=== PATIENT | female | born 1955 | race Caucasian/White ===

== ENCOUNTER 2017-08-20 20:02 | Inpatient (IN) | payer BC ==
[~2017-08-20] VITALS: Ht 162.6 cm; Wt 89.3 kg
[2017-08-21 00:40] LABS: BASOPHIL % 0.3 % (0-2); PLATELET COUNT 243 x10^3mcL (130-400); RED CELL DISTRIBUTION WIDTH 12.8 % (11.5-14.5)
[2017-08-21 00:56] LABS: ALBUMIN 3.9 g/dL (3.4-5.0); BILIRUBIN TOTAL 0.35 mg/dL (0.20-1.00); CARBON DIOXIDE 34.7 mmol/L (21-32); CREATININE SERUM 1.5 mg/dL (0.6-1.0); TOTAL PROTEIN, SERUM 7.3 g/dL (6.4-8.2)
[2017-08-21 01:04] LABS: POTASSIUM SERUM 2.5 mmol/L (3.5-5.1)
[2017-08-21] MEDS ORDERED: HYDROCHLOROTH12.5 M2 PO (02:52)
[2017-08-21] MEDS ORDERED: WELLBUTRIN SR150 M1 PO (02:52)
[2017-08-21] MEDS ORDERED: HCTZ/TRIAMTEREN1 CA1 PO (02:53)
[2017-08-21 03:26] VITALS: BP 125/80
[2017-08-21 03:56] LABS: MAGNESIUM 2.3 mg/dL (1.8-2.4); PHOSPHOROUS 4.5 mg/dL (2.5-4.9)
[2017-08-21 04:03] LABS: T3 TOTAL 1.05 ng/mL
[2017-08-21 04:06] LABS: FREE T4 1.11 ng/dL (0.76-1.46); FREE THYROXINE INDEX 3.3 ug/dL (1.4-4.5); T4(THYROXINE) 9.7 ug/dL (4.7-13.3)
[2017-08-21 04:07] LABS: CHOLESTEROL/HDL RATIO 6.8
[2017-08-21 06:51] VITALS: BP 116/66
[2017-08-21 07:02] LABS: BASOPHIL % 0.3 % (0-2); PLATELET COUNT 232 x10^3mcL (130-400); RED CELL DISTRIBUTION WIDTH 12.9 % (11.5-14.5)
[2017-08-21 07:37] LABS: CARBON DIOXIDE 33.1 mmol/L (21-32); CREATININE SERUM 1.1 mg/dL (0.6-1.0); MAGNESIUM 2.2 mg/dL (1.8-2.4); PHOSPHOROUS 4.3 mg/dL (2.5-4.9)
[2017-08-21 07:39] LABS: POTASSIUM SERUM 2.8 mmol/L (3.5-5.1)
[2017-08-21 09:16] VITALS: BP 125/69
== END 2017-08-21 09:35 | disposition left against medical advice (07) | DRG 205 ==
LOC: ED 20:02 → DU 08-21 02:25
PROVIDERS: Emergency Medicine; ADMIT Family Medicine Sports Medicine
DX: M94.0 Chondrocostal junction syndrome [Tietze] (principal); N17.0 Acute kidney failure with tubular necrosis; K21.9 Gastro-esophageal reflux disease without esophagitis; E87.6 Hypokalemia; E78.5 Hyperlipidemia, unspecified; F32.9 Major depressive disorder, single episode, unspecified; Z68.33 Body mass index [BMI] 33.0-33.9, adult; Z53.21 Procedure and treatment not carried out due to patient leaving prior to being seen by health care provider; Z90.13 Acquired absence of bilateral breasts and nipples; Z83.3 Family history of diabetes mellitus; Z82.49 Family history of ischemic heart disease and other diseases of the circulatory system; Z80.3 Family history of malignant neoplasm of breast
CPT/HCPCS: 83880; 84439; J7030; Q0092